=== PATIENT | male | born 1960 | race Caucasian/White ===

== ENCOUNTER 2016-11-07 04:40 | Emergency (ER) | payer MEDICAID, OTHER ==
[~2016-11-07] VITALS: Ht 180.3 cm; Wt 108.9 kg
[2016-11-07] MEDS ORDERED: SODIUM CHLORIDE 0.9% 1,000 ML IV ONE (06:15)
[2016-11-07] MEDS ORDERED: GLUCAGON HYDROCHLORIDE (RDNA) 1 MG VIAL IV ONE (06:15)
[2016-11-07] MEDS ORDERED: ONDANSETRON HCL 4 MG/2 ML VIAL IV ONE (08:00)
[2016-11-07] MEDS ORDERED: EPINEPHrine HCL 1 MG/10 ML SYRG ONE (08:18)
[2016-11-07] MEDS ORDERED: FLUMAZENIL 0.1 MG/ML INJ 10ML MDV IV ONE (08:18)
[2016-11-07] MEDS ORDERED: LIDOCAINE VISCOUS 2% 15ML UD ONE (08:18)
[2016-11-07] MEDS ORDERED: MIDAZOLAM HCL 5 MG/ML-1ML VIAL ONE ×2 (08:18→08:55)
[2016-11-07] MEDS ORDERED: diphenhdrAMINE HCL 50 MG/1 ML VL ONE (08:18)
[2016-11-07] MEDS ORDERED: NALOXONE HCL 0.4 MG/ML VIAL ONE (08:18)
[2016-11-07] MEDS ORDERED: SODIUM CHLORIDE LOCK 10 ML ONE (08:18)
[2016-11-07] MEDS ORDERED: fentaNYL CITRATE 100 MCG/2 ML VL ONE ×2 (08:19→08:56)
[2016-11-07 09:53] VITALS: BP 122/76
== END 2016-11-07 10:13 | disposition home or self-care (01) ==
LOC: ER 04:40
DX: T18.108A Unspecified foreign body in esophagus causing other injury, initial encounter (principal); W22.8XXA Striking against or struck by other objects, initial encounter; Y93.89 Activity, other specified; Y99.8 Other external cause status; Y92.89 Other specified places as the place of occurrence of the external cause
CPT/HCPCS: 43247; 70360; 71020; 94761; 96361; 96374; 96375; 99152; 99153; 99285; C1726; C1773; J1200; J1610; J2250; J2405; J3010